=== PATIENT | male | born 1990 | race Caucasian/White ===

== ENCOUNTER 2017-07-18 16:56 | Emergency (ER) | payer BC ==
[2017-07-18 17:34] LABS: APPEARANCE,URINE CLEAR; BILIRUBIN,URINE NEGATIVE (NEGATIVE); GLUCOSE, URINE NEGATIVE (NEGATIVE); KETONES,URINE NEGATIVE (NEGATIVE); LEUKOCYTE ESTERASE,URINE NEGATIVE (NEGATIVE); NITRITE,URINE NEGATIVE (NEGATIVE); PROTEIN,URINE NEGATIVE (NEGATIVE); URINE SPECIFIC GRAVITY 1.004; UROBILINOGEN,URINE NEGATIVE mg/dL (<2.0)
--- NOTE | 2017-07-18 17:56 | ER Document Report ---
[facility] GI/ - General Chief Complaint: Urinary Problem Stated Complaint: LOWER ABDOMINAL PAIN Time Seen by Provider: 07/18/17 17:42 Mode of Arrival: Ambulatory Information source: Patient TRAVEL OUTSIDE OF THE [place] IN LAST 30 DAYS: No - HPI Patient complains to provider of: Dysuria - pt states he has had dysuria and urgency for the pSAt few days - Related Data Allergies/Adverse Reactions: No Known Allergies Allergy (Unverified 07/18/17 17:03) Past Medical History - General Information source: Patient - Social History Smoking Status: Never Smoker Cigarette use (# per day): No Chew tobacco use (# tins/day): No Smoking Education Provided: No Family History: None Review of Systems - Review of Systems Constitutional: No symptoms reported EENT: No symptoms reported Cardiovascular: No symptoms reported Respiratory: No symptoms reported Genitourinary: See HPI, Burning, Dysuria, Urgency. denies: Discharge, Hematuria Male Genitourinary: denies: Penile discharge -: Yes All other systems reviewed and negative Physical Exam - Vital signs Vitals: Temp Pulse Resp BP Pulse Ox 98.1 F 91 18 142/77 H 100 07/18/17 17:01 07/18/17 17:01 07/18/17 17:01 07/18/17 17:01 07/18/17 17:01 - Respiratory Respiratory status: No respiratory distress Breath sounds: Normal - Cardiovascular Rhythm: Regular Heart sounds: Normal auscultation Course - Vital Signs Vital signs: Temp Pulse Resp BP Pulse Ox 98.1 F 91 18 142/77 H 100 07/18/17 17:01 07/18/17 17:01 07/18/17 17:01 07/18/17 17:01 07/18/17 17:01 Discharge - Discharge Clinical Impression: Dysuria Condition: Stable Disposition: HOME, SELF-CARE
[2017-07-18 18:33] VITALS: BP 130/65
== END 2017-07-18 18:35 | disposition home or self-care (01) ==
LOC: ER 16:56
DX: R30.0 Dysuria (principal); R10.30 Lower abdominal pain, unspecified; R39.15 Urgency of urination
CPT/HCPCS: 81001; 99283